=== PATIENT | male | born 1965 | race American Indian/Alaskan Native ===

== ENCOUNTER 2019-02-19 15:58 | Emergency (ER) | payer OTHER ==
[2019-02-19] MEDS ORDERED: NACL 0.9% 1000 ML 1,000 ML IV ONE (16:15)
--- NOTE | 2019-02-19 16:16 | Emergency Department Report ---
ED General Adult HPI - General Stated complaint: KIDNEY STONE Time Seen by Provider: 02/19/19 16:06 Source: patient, EMS Mode of arrival: Stretcher Limitations: No Limitations - History of Present Illness Initial comments: Patient is a 53-year-old male that presents with complaints of left flank pain. Patient states that it kidney stone in the past and feels like a kidney stone. Toradol shot in route by EMS and his pain is now a 2 out of 10. His pain is better with meds and rest. Patient states pain is worse with movement. Patient states better since having the shot. Patient denies nausea vomiting. Patient denies dysuria. Patient denies urinary frequency. Patient denies change in urine color. Patient states his symptoms started about 1-2 hours prior to coming to the hospital. -: Sudden Location: left Radiation: non-radiation Severity scale (0 -10): 8 Quality: stabbing Consistency: constant Improves with: medication, rest Worsens with: movement Associated Symptoms: denies: confusion, chest pain, cough, diaphoresis, fever/chills, headaches, loss of appetite, malaise, nausea/vomiting, rash, seizure, shortness of breath, syncope, weakness Treatments Prior to Arrival: NSAID - Related Data Previous Rx's Medication Instructions Recorded Last Taken Type HYDROcodone/APAP 5-325 [Zalma 1 each PO Q4HR PRN #12 tablet 02/19/19 Unknown Rx 5/325] Tamsulosin [Flomax] 0.4 mg PO QDAY #14 cap 02/19/19 Unknown Rx Allergies Allergy/AdvReac Type Severity Reaction Status Date / Time No Known Allergies Allergy Unverified 02/19/19 17:32 ED Review of Systems ROS: Stated complaint: KIDNEY STONE Other details as noted in HPI Constitutional: denies: chills, fever Eyes: denies: eye pain, eye discharge, vision change ENT: denies: ear pain, throat pain Respiratory: denies: cough, shortness of breath, wheezing Cardiovascular: denies: chest pain, palpitations Endocrine: no symptoms reported Gastrointestinal: abdominal pain. denies: nausea, diarrhea Genitourinary: denies: urgency, dysuria Musculoskeletal: denies: back pain, joint swelling, arthralgia Skin: denies: rash, lesions Neurological: denies: headache, weakness, paresthesias Psychiatric: denies: anxiety, depression Hematological/Lymphatic: denies: easy bleeding, easy bruising ED Past Medical Hx - Past Medical History Previous Medical History?: Yes Hx Hypertension: Yes Additional medical history: kidney stones - Surgical History Past Surgical History?: No - Family History Family history: no significant - Social History Smoking Status: Never Smoker Substance Use Type: None - Medications Home Medications: Home Medications Medication Instructions Recorded Confirmed Last Taken Type HYDROcodone/APAP 5-325 [Zalma 1 each PO Q4HR PRN #12 tablet 02/19/19 Unknown Rx 5/325] Tamsulosin [Flomax] 0.4 mg PO QDAY #14 cap 02/19/19 Unknown Rx ED Physical Exam - General Limitations: No Limitations General appearance: alert, in no apparent distress - Head Head exam: Present: atraumatic, normocephalic - Eye Eye exam: Present: normal appearance - ENT ENT exam: Present: mucous membranes moist - Neck Neck exam: Present: normal inspection - Respiratory Respiratory exam: Present: normal lung sounds bilaterally. Absent: respiratory distress - Cardiovascular Cardiovascular Exam: Present: regular rate, normal rhythm. Absent: systolic murmur, diastolic murmur, rubs, gallop - GI/Abdominal GI/Abdominal exam: Present: soft, normal bowel sounds. Absent: distended, tenderness, guarding, rebound - Rectal Rectal exam: Present: deferred - Extremities Exam Extremities exam: Present: normal inspection - Back Exam Back exam: Present: normal inspection. Absent: CVA tenderness (R), CVA tenderness (L) - Neurological Exam Neurological exam: Present: alert, oriented X3 - Psychiatric Psychiatric exam: Present: normal affect, normal mood - Skin Skin exam: Present: warm, dry, intact, normal color. Absent: rash ED Course Vital Signs 02/19/19 02/19/19 02/19/19 16:08 16:18 16:19 Temperature 98.8 F 98.8 F Pulse Rate 89 89 Respiratory 18 18 18 Rate Blood Pressure 144/78 Blood Pressure 144/78 [Left] O2 Sat by Pulse 100 100 Oximetry 02/19/19 02/19/19 18:22 19:15 Temperature 98.9 F 98.1 F Pulse Rate 87 77 Respiratory 18 18 Rate Blood Pressure Blood Pressure 149/95 147/89 [Left] O2 Sat by Pulse 98 100 Oximetry - Reevaluation(s) Reevaluation #1: I discussed all results with patient. Discussed plan of care with patient. Patient agrees with plan of care. Patient stable for discharge. Patient will be discharged home. Patient given discharge instructions. Patient voiced understanding of discharge instructions. 02/19/19 19:12 ED Medical Decision Making - Lab Data Result diagrams: 02/19/19 16:34 02/19/19 16:34 - Radiology Data Radiology results: report reviewed CT ABDOMEN AND PELVIS WITHOUT CONTRAST INDICATION / CLINICAL INFORMATION: flank pain. TECHNIQUE: Axial CT images were obtained through the abdomen and pelvis without IV contrast. All CT scans at this location are performed using CT dose reduction for ALARA by means of automated exposure control. COMPARISON: None available. FINDINGS: LOWER CHEST: No significant abnormality. LIVER: No significant abnormality. GALLBLADDER: No significant abnormality. BILE DUCTS: No significant abnormality. PANCREAS: No significant abnormality. SPLEEN: No significant abnormality. ADRENALS: 1.2 cm left adrenal adenomas present RIGHT KIDNEY and URETER: Punctate calcifications are present within the kidney. Mild dilatation of the right collecting system is present. A 0.24 cm calculus is present at the right ureteral vesicle junction. Also noted 2 cm right renal cyst.. LEFT KIDNEY and URETER: Punctate calcifications are present within the kidney STOMACH and SMALL BOWEL: No significant abnormality. COLON: No significant abnormality. APPENDIX: No significant abnormality. PERITONEUM: No free fluid. No free air. No fluid collection. LYMPH NODES: No significant adenopathy. AORTA and ARTERIES: No significant abnormality. IVC and VEINS: No significant abnormality. URINARY BLADDER: No significant abnormality. REPRODUCTIVE ORGANS: No significant abnormality. ADDITIONAL FINDINGS: None. SKELETAL SYSTEM: No lytic or sclerotic bone lesion present. Degenerative changes L5-S1 present IMPRESSION: 1. Obstructing calculus distal right ureter as noted 2. Bilateral nephrolithiasis 3. Left adrenal adenoma 4. Right renal cyst - Medical Decision Making Patient is a 53-year-old male that presents to emergency with complaints of left flank pain. Patient found have a kidney stone on CT scan. CT scan is negative for other acute findings. Mild hydronephrosis noted. Patient given fluids and Toradol and patient's pain improved. Patient responded well to treatment. Patient left the ER with minimal pain. Patient will be given pain medications and Flomax. Patient's UA is negative for infection. Patient's white blood cell elevated most like secondary to pain. - Differential Diagnosis kidney stone. Flank pain. Critical care attestation.: If time is entered above; I have spent that time in minutes in the direct care of this critically ill patient, excluding procedure time. ED Disposition Clinical Impression: Renal stone, Acute flank pain Hydronephrosis Qualifiers: Hydronephrosis type: with renal calculous obstruction Qualified Code(s): N13.2 - Hydronephrosis with renal and ureteral calculous obstruction Hypertension Qualifiers: Hypertension type: essential hypertension Qualified Code(s): I10 - Essential (primary) hypertension Disposition: TO HOME OR SELFCARE Is pt being admited?: No Does the pt Need Aspirin: No Condition: Stable Instructions: Kidney Stones (ED), Renal Colic (ED), How to Strain Your Urine (ED), Hypertension (ED), Flank Pain (ED) Additional Instructions: Patient follow up with primary care in 2-3 days. Patient to follow up with urologist in 2-3 days and call urologist for appointment within that timeframe. Patient to increase water. Patient to rest. Patient to take medicines as directed. Patient states Tylenol or ibuprofen when necessary pain. Patient to return to ER if condition worsens. Prescriptions: Tamsulosin [Flomax] 0.4 mg PO QDAY #14 cap HYDROcodone/APAP 5-325 [Zalma 5/325] 1 each PO Q4HR PRN #12 tablet PRN Reason: Pain Referrals: MICHAEL MEJIA MD [Primary Care Provider] - 2-3 Days TRACEY WASHINGTON MD [Staff Physician] - 2-3 Days Forms: Work/School Release Form(ED) Time of Disposition: 19:19
[2019-02-19 16:57] LABS: Basophils % (Auto) 0.2 % (0.0-1.8); Eosinophils # (Auto) 0.1 K/mm3 (0.0-0.4); Eosinophils % (Auto) 0.6 % (0.0-4.3); Hematocrit 35.7 % (35.5-45.6); Hemoglobin 12.4 gm/dl (11.8-15.2); Lymphocytes # (Auto) 1.6 K/mm3 (1.2-5.4); Lymphocytes % (Auto) 14.2 % (13.4-35.0); Mean Corpuscular HGB Conc 35 % (32-34); Mean Corpuscular Volume 92 fl (84-94); Monocytes # (Auto) 0.6 K/mm3 (0.0-0.8); Monocytes % (Auto) 5.4 % (0.0-7.3); Platelet Count 288 K/mm3 (140-440); Red Blood Count 3.86 M/mm3 (3.65-5.03); Red Cell Distribution Width 14.6 % (13.2-15.2)
[2019-02-19 17:21] LABS: Alanine Aminotransferase 10 units/L (7-56); BUN/Creatinine Ratio 8; Blood Urea Nitrogen 9 mg/dL (9-20); Calcium 9.3 mg/dL (8.4-10.2); Hemolysis Index 2
[2019-02-19 17:24] LABS: Bilirubin,Direct < 0.2 mg/dL (0-0.2)
[2019-02-19 18:07] LABS: Bilirubin,Urine NEG (Negative); Blood,Urine MOD (Negative); Color,Urine Straw (Yellow); Protein,Urine <15 mg/dL mg/dL (Negative); Urobilinogen,Urine < 2.0 mg/dL (<2.0); WBC,Urine < 1.0 /HPF (0.0-6.0)
--- NOTE | 2019-02-19 18:50 | Cat Scan Report ---
CT ABDOMEN AND PELVIS WITHOUT CONTRAST INDICATION / CLINICAL INFORMATION: flank pain. TECHNIQUE: Axial CT images were obtained through the abdomen and pelvis without IV contrast. All CT scans at is location are performed using CT dose reduction for ALARA by means of automated exposure control. COMPARISON: None available. FINDINGS: LOWER CHEST: No significant abnormality. LIVER: No significant abnormality. GALLBLADDER: No significant abnormality. BILE DUCTS: No significant abnormality. PANCREAS: No significant abnormality. SPLEEN: No significant abnormality. ADRENALS: 1.2 cm left adrenal adenomas present RIGHT KIDNEY and URETER: Punctate calcifications are present within the kidney. Mild dilatation of th e right collecting system is present. A 0.24 cm calculus is present at the right ureteral vesicle rachel ction. Also noted 2 cm right renal cyst.. LEFT KIDNEY and URETER: Punctate calcifications are present within the kidney STOMACH and SMALL BOWEL: No significant abnormality. COLON: No significant abnormality. APPENDIX: No significant abnormality. PERITONEUM: No free fluid. No free air. No fluid collection. LYMPH NODES: No significant adenopathy. AORTA and ARTERIES: No significant abnormality. IVC and VEINS: No significant abnormality. URINARY BLADDER: No significant abnormality. REPRODUCTIVE ORGANS: No significant abnormality. ADDITIONAL FINDINGS: None. SKELETAL SYSTEM: No lytic or sclerotic bone lesion present. Degenerative changes L5-S1 present IMPRESSION: 1. Obstructing calculus distal right ureter as noted 2. Bilateral nephrolithiasis 3. Left adrenal adenoma 4. Right renal cyst Signer Name: Markell Porter MD Signed: 02/19/2019 6:45 PM Workstation Name: [id number]
[2019-02-19 19:40] VITALS: BP 147/89
== END 2019-02-19 20:10 | disposition home or self-care (01) ==
LOC: ED 15:58
DX: N13.2 Hydronephrosis with renal and ureteral calculous obstruction (principal); I10 Essential (primary) hypertension; R11.2 Nausea with vomiting, unspecified; Z79.899 Other long term (current) drug therapy
CPT/HCPCS: 36415; 74176; 80048; 80076; 81001; 85025; 96360; 99285; J7030